=== PATIENT | female | born 1935 | race Caucasian/White ===

== ENCOUNTER 2017-11-26 08:22 | Emergency (ER) | payer MEDICARE ==
--- NOTE | 2017-11-26 08:59 | ED ---
GI/ HPI - HPI Summary HPI Summary: This is benedict Alvarado documenting for attending Brant Cardenas MD. This patient is a 82 year old F presenting to [facility] accompanied by her family with a chief complaint of blood in her stool that she noticed this morning. Pt woke up this morning feeling dizzy at this point she went to the bathroom. She strained to pass stool and there was blood streaked on her stool and there was some on wiping. While she was using the bathroom she began vomiting. The patient rates the pain 1/10 in severity. Patient reports light headedness, n/v , blood in stool, abrasion to the right dorsal hand, LE edema, dry mouth, and general weakness. Patient denies diarrhea. Pt current is on pradaxa for Afib. Hx hemorrhoids. She states she has had LE edema since 10-25-17. - History of Current Complaint Chief Complaint: EDDizziness Time Seen by Provider: 11/26/17 08:58 Stated Complaint: DIZZINESS/BLOOD IN STOOL Hx Obtained From: Patient Onset/Duration: Started Hours Ago, Still Present Timing: Constant, Lasting Days Severity: Mild Current Severity: Mild Pain Intensity: 1 Associated Signs and Symptoms: Positive: Negative - diarrhea, Other: - light headedness, n/v, blood in stool, abrasion to the right dorsal hand, LE edema, dry mouth, and general weakness - Allergy/Home Medications Allergies/Adverse Reactions: Allergies Allergy/AdvReac Type Severity Reaction Status Date / Time No Known Allergies Allergy Verified 10/11/13 09:30 Home Medications: Home Medications Oxybutynin Chloride ER 10 mg PO DAILY 11/26/17 [History Confirmed 11/26/17] PMH/Surg Hx/FS Hx/Imm Hx Endocrine/Hematology History: Reports: Hx Diabetes - BORDERLINE, Hx Thyroid Disease Cardiovascular History: Reports: Hx Atrial Fibrillation, Hx Hypertension, Other Cardiovascular Problems/Disorders - HLD Denies: Hx Pacemaker/ICD Respiratory History: Reports: Hx Chronic Obstructive Pulmonary Disease (COPD) Denies: Hx Asthma Sensory History: Reports: Hx Hearing Aid Psychiatric History: Denies: Hx Panic Disorder - Surgical History Surgery Procedure, Year, and Place: R knee REPLACEMENT surgery. choley. [facility] LOOP RECORDER FROM DR LEON/PT HAS CARD FOR [place] Infectious Disease History: No Infectious Disease History: Denies: Traveled Outside the [place] in Last 30 Days - Family History Known Family History: Positive: Cardiac Disease Negative: Diabetes, Renal Disease, Respiratory Disease, Seizure Disorder, Blood Disorder - Social History Lives: With Family Alcohol Use: None Substance Use Type: Reports: None Smoking Status (MU): Former Smoker Have You Smoked in the Last Year: No Review of Systems Positive: Other - dry mouth Gastrointestinal: Other - blood in stool Positive: Vomiting, Nausea. Negative: Diarrhea Positive: Edema Positive: Other - abrasion the the dorsal aspect of the right hand Neurological: Other - dizziness and light headedness Positive: Weakness All Other Systems Reviewed And Are Negative: Yes Physical Exam - Summary Physical Exam Summary: Appearance: Well appearing, no pain distress Skin: warm, dry, reflects adequate perfusion Head/face: normal Eyes: EOMI, JACQUIE ENT: mucus membranes are dry Neck: supple, non-tender Respiratory: diminished breath sounds, no wheezes Cardiovascular: grade 3 systolic murmur, heart is irregularly irregular Abdomen: non-tender, soft Bowel Sounds: hypoactive Musculoskeletal: normal, strength/ROM intact, no LE edema Neuro: normal, sensory motor intact, A&Ox3 Rectal: one small non inflamed hemorrhoid that is not bleeding, on internal exam there is no hard stool there is obvious red blood mixed with the stool, no internal hemorrhoids felt Triage Information Reviewed: Yes Vital Signs On Initial Exam: Initial Vitals Temp Pulse Resp BP Pulse Ox 97.1 F 77 16 148/98 98 11/26/17 08:32 11/26/17 08:32 11/26/17 08:32 11/26/17 08:32 11/26/17 08:32 Vital Signs Reviewed: Yes Diagnostics - Vital Signs Vital Signs Temp Pulse Resp BP Pulse Ox 11/26/17 08:32 97.1 F 77 16 148/98 98 - Laboratory Result Diagrams: 11/26/17 09:06 11/26/17 09:06 Lab Statement: Any lab studies that have been ordered have been reviewed, and results considered in the medical decision making process. - EKG 0909 Cardiac Rate: NL EKG Rhythm: Atrial Fibrillation - at [address] Segment: Non-Specific EKG Interpretation: normal axis GIGU Course/Dx - Course Course Of Treatment: 82-year-old female on Pradaxa for atrial fibrillation presents with bright red blood per rectum and found on exam in the rectal vault. She is actually hypotense and her hemoglobin is normal. She is not a candidate for Praxbind given her hemodynamic stability. There is no GI coverage on-call here and so transfer arrangements were made for [facility]. She has remained stable throughout her ER course and be transferred by EMS. - Diagnoses Provider Diagnoses: Lower GI bleed, Adverse effect of anticoagulant - Physician Notifications Discussed Care Of Patient With: Floridalma - hospitalist at [facility] except for transfer Discharge - Sign-Out/Discharge Documenting (check all that apply): Patient Departure - Discharge Plan Condition: Fair Disposition: TRANS HIGHER LVL OF CARE FAC Referrals: Clme Medina MD [Primary Care Provider] - - Billing Disposition and Condition Condition: FAIR Disposition: Trans Higher Lvl of Care Fac Consult Consult: 09:46 I discussed patient care with the pharmacy and they do not believe the patient is a candidate for praxbind because she is stable. 09:50 We discussed patient care with the transfer center at [facility]. They have accepted the patient for transfer and the accepting physician is Dr. Hedrick.
[2017-11-26] MEDS ORDERED: NS 0.9% 1000 ML* 1,000 ML IV ONE (09:00)
[2017-11-26] MEDS ORDERED: Ondansetron INJ* 2 MG/ML VIAL IV ONE (09:00)
[2017-11-26 09:12] LABS: ABS Basophils 0.1 10^3/ul (0-0.2); ABS Eosinophils 0.2 10^3/ul (0-0.6); ABS Lymphocytes 0.7 10^3/ul (1.0-4.8); ABS Monocytes 0.4 10^3/ul (0-0.8); ABS Neutrophils 6.4 10^3/ul (1.5-7.7); ABS Nucleated RBC 0 10^3/ul; Hematocrit 38 % (35-47); Hemoglobin 12.5 g/dl (12.0-16.0); Lymphocyte % 9.6 % (25-47); Mean Corpuscular HGB Conc 33 g/dl (31-36); Mean Corpuscular Hemoglobin 29 pg (27-31); Mean Corpuscular Volume 87 fL (80-97); Mean Platelet Volume 8.5 um3 (7.4-10.4); Nucleated Red Blood Cells % 0.1; Platelet Count 162 10^3/ul (150-450); Red Blood Count 4.32 10^6/ul (4.00-5.40); Red Cell Distribution Width 18 % (10.5-15); White Blood Count 7.7 10^3/ul (3.5-10.8)
[2017-11-26 09:29] LABS: EGFR Non-African American 46.1 (>60)
[2017-11-26 09:33] LABS: INR 1.17 (0.77-1.02)
[2017-11-26] MEDS ORDERED: IDARUCIZUMAB* 2.5 GM/50 ML VIAL IV ONE (09:38)
[2017-11-26 10:51] VITALS: BP 174/83
== END 2017-11-26 11:19 | disposition short-term general hospital (02) ==
LOC: ED 08:22
DX: K92.2 Gastrointestinal hemorrhage, unspecified (principal); T45.515A Adverse effect of anticoagulants, initial encounter; R11.2 Nausea with vomiting, unspecified; R60.9 Edema, unspecified; R53.1 Weakness; Z87.891 Personal history of nicotine dependence
CPT/HCPCS: 36415; 80053; 83690; 84484; 85025; 85610; 93005; 96374; 96375; 99284; J2405